=== PATIENT | male | born 1965 | race Two or more races ===

== ENCOUNTER 2017-02-08 07:15 | Emergency (ER) | payer OTHER ==
[~2017-02-08] VITALS: Ht 170.2 cm; Wt 91.5 kg
[2017-02-08] MEDS ORDERED: MAALOX/HYOSCYAMINE/LIDOCAINE 45 ML BTL ONE (07:57)
[2017-02-08] MEDS ORDERED: ONDANSETRON 2MG/ML, 2ML ONE (07:57)
[2017-02-08] MEDS ORDERED: FAMOTIDINE 20 MG/2 ML ONE (07:57)
[2017-02-08] MEDS ORDERED: FAMOTIDINE 20 MG/2 ML IVP ONE (08:00)
[2017-02-08] MEDS ORDERED: SODIUM CHLORIDE 0.9% 1,000ML IVBOLUS ONE (08:00)
[2017-02-08] MEDS ORDERED: MAALOX/HYOSCYAMINE/LIDOCAINE 45 ML BTL PO ONE (08:00)
[2017-02-08] MEDS ORDERED: ONDANSETRON 2MG/ML, 2ML IVPush ONE (08:00)
[2017-02-08] MEDS ORDERED: SODIUM CHLORIDE FLUSH 10ML SYR IVF ONE (08:00)
[2017-02-08 08:06] LABS: HEMATOCRIT 47.6 % (39.2-51.8); HEMOGLOBIN 15.8 g/dL (13.7-18.0); WHITE BLOOD COUNT 6.8 x10^3/uL (3.4-10)
[2017-02-08 08:15] LABS: ASPARTATE AMINO TRANSFERASE 21 U/L (15-37); BLOOD UREA NITROGEN 14 mg/dL (7-18)
[2017-02-08 11:02] VITALS: BP 122/80
== END 2017-02-08 11:04 | disposition home or self-care (01) ==
LOC: ED 07:59
DX: K80.20 Calculus of gallbladder without cholecystitis without obstruction (principal)
CPT/HCPCS: 36415; 76700; 80053; 83690; 85025; 96361; 96374; 96375; 99285; J2405; J7030; S0028

== ENCOUNTER 2017-09-30 05:34 | Day surgery (SDC) | payer OTHER ==
[~2017-09-30] VITALS: Ht 170.2 cm; Wt 90.1 kg
[~2017-09-30 05:34] MED LIST: MULT-516 PO
[2017-09-30] MEDS ORDERED: LACTATED RINGERS 1,000 ML IV SCH (06:20)
[2017-09-30 06:38] VITALS: BP 144/86
[2017-09-30] MEDS ORDERED: FENTANYL PF 100 MCG/2ML ONE (07:11)
[2017-09-30] MEDS ORDERED: MIDAZOLAM 1 MG/ML, 2ML ONE (07:11)
[2017-09-30] MEDS ORDERED: ONDANSETRON ODT 8 MG ONE (07:11)
[2017-09-30] MEDS ORDERED: PROPOFOL 10 MG/ML, 20ML ONE (07:27)
[2017-09-30] MEDS ORDERED: OXYcodone 5 MG/5 ML ORAL.SOL UDC PO PRN (08:00)
[2017-09-30] MEDS ORDERED: FENTANYL PF 100 MCG/2ML IV PRN (08:00)
[2017-09-30] MEDS ORDERED: hydrALAzine 20 MG/ML, 1ML IV PRN (08:00)
[2017-09-30] MEDS ORDERED: LABETALOL 5MG/ML, 20ML IV PRN (08:00)
[2017-09-30] MEDS ORDERED: PROMETHAZINE 25 MG/ML, 1ML IV PRN (08:00)
[2017-09-30] MEDS ORDERED: MEPERIDINE/PF 25MG/0.5ML IVPush PRN (08:00)
[2017-09-30] MEDS ORDERED: ACETAMINOPHEN 325 MG TABLET PO PRN (08:00)
[2017-09-30] MEDS ORDERED: HYDROmorphone 1 MG/ML, 1ML IV PRN (08:00)
== END 2017-09-30 09:42 | disposition home or self-care (01) ==
LOC: OR 05:34
PROVIDERS: ATTEND Surgery
DX: K62.5 Hemorrhage of anus and rectum (principal); K57.30 Diverticulosis of large intestine without perforation or abscess without bleeding; K64.1 Second degree hemorrhoids; F15.90 Other stimulant use, unspecified, uncomplicated; Z72.89 Other problems related to lifestyle; Z79.899 Other long term (current) drug therapy; Z82.49 Family history of ischemic heart disease and other diseases of the circulatory system; Z90.49 Acquired absence of other specified parts of digestive tract
CPT/HCPCS: 45378; J2704; J7120

== ENCOUNTER 2019-11-22 07:12 | Day surgery (SDC) | payer OTHER ==
[2019-11-19 14:21] LABS: ALBUMIN 4.2 g/dL (3.4-5.0); ANION GAP 5 mmol/L (5-15); CALCIUM 9.7 mg/dL (8.5-10.1); CHLORIDE 105 mmol/L (98-107)
[2019-11-19 14:26] LABS: ALANINE AMINOTRANSFERASE 32 U/L (12-78); ALKALINE PHOSPHATASE 98 U/L (45-117); BILIRUBIN,TOTAL 0.6 mg/dL (0.2-1.0); CREATININE 0.99 mg/dL (0.7-1.3)
[~2019-11-22] VITALS: Ht 170.2 cm; Wt 90.9 kg
[~2019-11-22 07:12] MED LIST changes: +LISI-170 PO
[2019-11-22] MEDS ORDERED: CHLORHEXIDINE 15 ML UDC MM STA (07:23)
[2019-11-22] MEDS ORDERED: LACTATED RINGERS 1,000 ML IV SCH (07:23)
[2019-11-22 07:29] VITALS: BP 153/86
[2019-11-22] MEDS ORDERED: FENTANYL PF 100 MCG/2ML ONE ×2 (08:21→09:15)
[2019-11-22] MEDS ORDERED: MIDAZOLAM 1 MG/ML, 2ML ONE (08:21)
[2019-11-22] MEDS ORDERED: BUPIVACAINE/PF-EPI 0.5% 1:200K ONE (08:36)
[2019-11-22] MEDS ORDERED: ROCURONIUM 10MG/ML,5ML ONE (08:51)
[2019-11-22] MEDS ORDERED: KETOROLAC 30 MG/1 ML ONE (08:51)
[2019-11-22] MEDS ORDERED: SUCCINYLCHOLINE 20 MG/ML, 10ML ONE (08:51)
[2019-11-22] MEDS ORDERED: METRONIDAZOLE PMX 500MG/100ML 100 ML ONE (09:08)
[2019-11-22] MEDS ORDERED: DEXAMETHASONE 4 MG/ML, 1ML ONE (09:25)
[2019-11-22] MEDS ORDERED: PROPOFOL 10 MG/ML, 20ML ONE (09:25)
[2019-11-22] MEDS ORDERED: CEFAZOLIN 1,000 MG ONE (09:25)
[2019-11-22] MEDS ORDERED: ONDANSETRON 2MG/ML, 2ML ONE (09:25)
[2019-11-22] MEDS ORDERED: PROMETHAZINE 25 MG/ML, 1ML IVPush PRN (09:30)
[2019-11-22] MEDS ORDERED: LABETALOL 5MG/ML, 20ML IV PRN (09:30)
[2019-11-22] MEDS ORDERED: HYDROmorphone 1 MG/ML, 1ML INJ IVPush PRN (09:30)
[2019-11-22] MEDS ORDERED: MEPERIDINE/PF 25MG/0.5ML IVPush PRN (09:30)
[2019-11-22] MEDS ORDERED: FENTANYL PF 100 MCG/2ML IV PRN (09:30)
[2019-11-22] MEDS ORDERED: OXYcodone 5 MG/5 ML ORAL.SOL UDC PO PRN (09:30)
[2019-11-22] MEDS ORDERED: ALBUTEROL SULFATE 2.5 MG/3 ML NPPB PRN (09:30)
[2019-11-22] MEDS ORDERED: ACETAMINOPHEN 325 MG TABLET PO PRN (09:30)
[2019-11-22] MEDS ORDERED: hydrALAzine 20 MG/ML, 1ML IV PRN (09:30)
== END 2019-11-22 11:25 | disposition home or self-care (01) ==
LOC: OUT 07:12
PROVIDERS: ATTEND Colon & Rectal Surgery
DX: K60.3 Anal fistula (principal); Z20.828 Contact with and (suspected) exposure to other viral communicable diseases; K64.9 Unspecified hemorrhoids; I10 Essential (primary) hypertension; E78.00 Pure hypercholesterolemia, unspecified; F17.210 Nicotine dependence, cigarettes, uncomplicated; Z79.899 Other long term (current) drug therapy; Z90.49 Acquired absence of other specified parts of digestive tract; Z98.890 Other specified postprocedural states; Z82.61 Family history of arthritis; Z83.3 Family history of diabetes mellitus; Z80.3 Family history of malignant neoplasm of breast; Z82.49 Family history of ischemic heart disease and other diseases of the circulatory system; Z83.42 Family history of familial hypercholesterolemia
CPT/HCPCS: 36415; 46275; 80053; 87635; C1729; J0330; J0690; J1100; J1885; J2250; J2405; J2704; J3010; J7120